=== PATIENT | male | born 1980 | race Caucasian/White ===

== ENCOUNTER 2024-10-16 13:14 | Day surgery (SDC) | payer BC, SELFPAY ==
[2024-10-16] VITALS (8 sets, daily range): BP systolic 129–138; BP diastolic 74–84; PULSE 73–95; RESP 16–18; TEMP 36.6–36.9; O2SAT 97–99; BMI 48.2
--- NOTE | 2024-10-16 | IMM_PTH ---
PATIENT: MCKENNA BAIRD LOC: EN U#:[id number] AGE/SX: 43/M ROOM: RE10/16/[address]: Dr. Freeman Pennington MD : 1980 BED: DIS: 10/16/2024 SPEC #: [id number] RECD: 10/18/24 10:57 STATUS: SRIDHAR REQ #: [id number] FLORES: 10/16/24 00:[address]: Freeman Pennington DEPT: IMMUNOHISTOCHEMISTRY RECD BY: Umesh Sidhu ENTERED: 10/18/24 10:58 SP TYPE: IMMUNO OTHR DR: Roslyn Randall MD Tissues: Descending colon Procedures: SMA (add) CD31 (add) CD34 (add) CK8 (add) DESMIN (add) KI-67 (add) Vimentin (add) FACTOR VIII (add) Pankeratin (initial) PHYSICIAN & INSTITUTION [place] [address] SPECIMEN INFORMATION: Tissue Source: Descending colon polyp Clinical Info: Encounter for screening for malignant neoplasm of colon Specimen Number: [id number] CPT code: 48573,57621j5 METHODOLOGY: Deparaffinized sections of prefer/formalin-fixed tissue or PAP/DQ stained slides are incubated with monoclonal/polyclonal antibodies/oligonucleotide probes. Localization is made via biotin free immunoperoxidase method. Appropriate controls are performed and reacted as expected. Results on target cell population are indicated in the following table: RESULTS: ANTIBODY / CLONE RESULT AE1-3 (AE1/AE3/PCK26) negative CK8 (19hfwrF71) negative Vimentin (V9) positive CD31 (ADDISON/70A) negative Factor VIII (R Ag) negative CD34 (QBEnd-10) negative Actin (1A4) positive Desmin (CE-R-11) positive Ki-67 (30-9) positive, low <1% These tests were developed and their performance characteristics determined by [facility]. They may not have been cleared or approved by the U.S. Food and Drug Administration. The FDA has determined that such clearance or approval is not necessary. The above immunohistochemical/dualISH markers are ordered and reviewed by the Pathologist. INTERPRETATION: Descending colon polyp, polypectomy: Submucosal leiomyoma. 10/21/2024
--- NOTE | 2024-10-16 13:36 | PRE.ANES_ITS ---
ASA Classification* ASA Classification ASA Classification: 2 Assessment & Plan Anesthesia* Anesthesia Assessment Anesthesia Assessment: Discussed sedation and/or anesthesia options, risks, benefits, and alternatives with patient/parents/legal guardian/POA. Questions invited. The patient/parents/legal guardian/POA seems to understand and agrees to proceed with anesthesia plan. Reviewed the physical assessment, medical history, allergy history and patient home medications list prior to surgery/procedure/anesthetic and documented any changes. Performed airway and anesthesia risk assessments. Anesthesia Type Anesthesia Type: MAC Anesthesia Focused Assessment* Airway Assessment Mouth opens: >3 cm Mallampati Score: II Focused Labs Anesthesia Preop lab: CBC CHEMISTRY COAG Pre-Assessment Diagnosis/Proposed Procedure Planned Operative Procedure(s): CSCOPE Anesthesia History Anesthesia History - 911 operator: Anesthesia History - 911 operator Hx Hospitalization No 10/14/24 13:22 Any Problems With Anesthesia No 10/14/24 13:22 Cholinesterase deficiency No 10/14/24 13:22 You/Your Family Experience No 10/14/24 13:22 fever (hyperthermia) with Relationship Recent Exposure to Contagious Disease Does patient have nerve No 10/14/24 13:22 stimulator Patient instructed to have device shut off --Does patient have Pacemaker or ICD? When Was Last Pacemaker Check QUESTION #4 FULL TEXT: You/Your Family Experience fever (hyperthermia) with Anesthesia Last Oral Intake Last Oral intake: Last Oral Intake NPO since Meds taken in AM with sips of water? Meds patient instructed to take am of surgery PONV PONV - 911 operator: PONV - 911 operator Female No 10/14/24 13:22 HX of Motion Sickness No 10/14/24 13:22 HX of N/V After Surgery No 10/14/24 13:22 Non-Smoker Yes 10/14/24 13:22 Duration of Surgery greater No 10/14/24 13:22 than 60 minutes Number of Risk Factors 1 10/14/24 13:22 PONV Score Low Risk 10/14/24 13:22 Height & Weight Height & Weight: Anesthesia: Height & Weight Height 5 ft 11 in 09/23/24 16:09 Respiratory Assessment Respiratory Assessment - 911 operator: Respiratory Tract Infection Hx - 911 operator Hx Respiratory Tract Infection No 10/14/24 13:22 STOP Sleep Apnea STOP Sleep Apnea - 911 operator: STOP Sleep Apnea - 911 operator Hx Hypertension Yes: CONTROLLED WITH 10/14/24 13:22 Hx Sleep Apnea Yes 10/14/24 13:22 CPAP Yes 10/14/24 13:22 BIPAP No 10/14/24 13:22 Do you snore loudly (louder than talking or can be heard Do you often feel tired/ fatigued/ sleepy during daytime? Has anyone observed you stop breathing during sleep? STOP Results Positive 10/14/24 13:22 QUESTION #5 FULL TEXT : Do you snore loudly (louder than talking or can be heard through closed doors)? 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 Specify any problems Hx of Preganancy in last 3 N/A 10/14/24 13:22 Months Nurse Filling Out Transfusion NBUCHER 10/14/24 13:22 & Questions: Date: 10/14/24 10/14/24 13:22 Time: 13:24 10/14/24 13:22 Patient unable to answer at this time (ie. confused, unrespo /Reproduction History /Reproductive History - 911 operator: /Reproductive Hx- 911 operator Hx Now No 10/14/24 13:22 Gestational Age (in weeks): EDC: Hx Hx Para Hx Section SAB No 10/14/24 13:22 [facility] History Wears glasses Non-smoker CPAP (continuous positive airway pressure) dependence Sleep apnea HARIS on CPAP HTN (hypertension) Home Medications ?Medication ?Instructions ?Recorded ?Last Taken ?Type amlodipine 5 mg tablet 5 mg PO QDAY 09/23/24 Unknown History cholecalciferol (vitamin D3) 25 25 mcg PO QDAY 09/23/24 Unknown History mcg (1,000 unit) capsule Allergy/AdvReac Type Severity Reaction Status Date / Time No Known Allergies Allergy Verified 10/14/24 13:22 Family History Aunt Colon cancer, Onset Age: 50 Paternal Father Cancer Mother Hypertension Surgical History Hx of eye surgery (~1984) Social History Smoking Status: Never smoker Review of Systems (Anesthesia) ROS Narrative System reviewed and no additional complaints, except as documented.
--- NOTE | 2024-10-16 14:22 | H&P.OPEN ---
HPI - General HPI Narrative MCKENNA BAIRD, is a 43 M who presents for screening colonoscopy. He has never had a colonoscopy in the past. He denies abdominal pain or blood in the stool. He has family history of colon cancer in an aunt [facility] Medical History Wears glasses Non-smoker CPAP (continuous positive airway pressure) dependence Sleep apnea HARIS on CPAP HTN (hypertension) Home Medications ?Medication ?Instructions ?Recorded ?Last Taken ?Type amlodipine 5 mg tablet 5 mg PO QDAY 09/23/24 10/16/24 09:00 History cholecalciferol (vitamin D3) 25 25 mcg PO QDAY 09/23/24 Unknown History mcg (1,000 unit) capsule Allergy/AdvReac Type Severity Reaction Status Date / Time No Known Allergies Allergy Verified 10/16/24 13:48 Family History Aunt Colon cancer, Onset Age: 50 Paternal Father Cancer Mother Hypertension Surgical History Hx of eye surgery (~1984) Social History Smoking Status: Never smoker Past Medical/Surgical History Planned Operation Planned Operative Procedure(s): CSCOPE Previous Hospitalizations/Surgeries HX Hospitalizations: No Any Problems With Anesthesia: No You/Your Family Experience Fever (Hyperthermia) With Anes: No Cholinesterase deficiency: No Cardiovascular Hx Hypertension: Yes (CONTROLLED WITH) Respiratory Hx Sleep Apnea: Yes CPAP: Yes BIPAP: No Hx Respiratory Tract Infection/Cold (presently): No Result (for STOP score): Positive Smoking Status: Never smoker Neurological Does patient have nerve stimulator: No Reproduction : No Miscellaneous Recent Exposure to Contagious Disease: No Allergies No Known Allergies Allergy (Verified 10/16/24 13:48) Discharge Is Pt Admitted From a [facility], or a Intermediate: No After D/C, Where Do you Plan to Go: Return Home Vital Signs Vital Signs Vital Signs: 10/16/24 13:49 10/16/24 13:49 Temperature 98.4 F Temperature Source Temporal Pulse Rate 95 Respiratory Rate 18 Respiratory Pattern Normal Blood Pressure 138/82 H Blood Pressure Mean 100 Blood Pressure Source Monitor Blood Pressure Position Sitting Blood Pressure Location Right Arm Pulse Ox 99 Oxygen Delivery Method Room Air Weight Weight: 346 lb 2.012 oz Body Mass Index (BMI) 48.2 Physical Exam Const alert and oriented x3 HEENT normocephalic Eyes PERRL Resp normal respiratory effort and normal air movement Cardio regular rate and regular rhythm GI soft to palpation, non-tender and non-distended Extremity normal to inspection Assessment & Plan Assessment/Plan (1) Encounter for screening for malignant neoplasm of colon: PLAN: I explained endoscopy in detail to the patient. I explained the risks including but not limited to stroke or heart attack with anesthesia, perforation of the GI tract, bleeding, infection. I explained that any of these could necessitate further emergency surgery. The patient understands and all questions were answered sufficiently. The patient wishes to proceed with procedure. Freeman Pennington MD Pager: [facility] [address] [place] [address], [address] [place] [address] Office: Surgery Risks - Colonoscopy Risks Include but are not Limited To: Risks include but are not limited to: Bleeding, perforation requiring further surgery, inability to complete colonoscopy requiring barium enema.
--- NOTE | 2024-10-16 14:30 | COLBX_PTH ---
PATIENT: MCKENNA BAIRD LOC: EN U#:[id number] AGE/SX: 43/M ROOM: RE10/16/[address]: Dr. Freeman Pennington MD : 1980 BED: DIS: 10/16/2024 SPEC #: [id number] RECD: 10/16/24 17:54 STATUS: SRIDHAR VILLEDA #: [id number] FLORES: 10/16/24 14:[address]: Freeman Pennington DEPT: SURGICAL PATHOLOGY RECD BY: Jolly Ross ENTERED: 10/17/24 08:10 SP TYPE: COLON BX OTHR DR: Roslyn Randall MD Tissues: Descending colon Procedures: Surgery Specimen Level IV HEADER OPERATION: Colonoscopy, polypectomy PRE-OP DIAGNOSIS: Encounter for screening for malignant neoplasm of colon TISSUE SUBMITTED: Descending colon polyp MICROSCOPIC DIAGNOSIS Descending colon polyp, polypectomy: Submucosal leiomyoma. See roderick. 10/18/2024 COMMENT Immunohistochemistry ([id number]) supports the above diagnosis. MICROSCOPIC DESCRIPTION Slides are reviewed. GROSS DESCRIPTION Received in fixative is one container labeled with the patient's name and designated Descending colon polyp. The specimen consists of a pink-red polyp measuring 0.7 x 0.7 x 0.5 cm. The presumed base is inked. The specimen is bisected and submitted entirely in one cassette. 10/17/2024 TC:1 CPT:85231
--- NOTE | 2024-10-16 14:55 | OP.COLON_ITS ---
Patient Name: Lv Enamorado Procedure Date: 10/16/2024 2:26 PM Date of : 1980 Age: 43 Procedure: Colonoscopy Indications: Screening for colorectal malignant neoplasm Providers: Freeman Pennington MD Referring MD: Roslyn Randall Md Medicines: Propofol per Anesthesia Patient Profile: This is a 43 year old male. Refer to note in patient chart for documentation of history and physical. Last Colonoscopy: none. The patient's first colonoscopy is today. Complications: No immediate complications. Estimated blood loss: Minimal. Procedure: Pre-Anesthesia Assessment: - Prior to the procedure, a History and Physical was performed, and patient medications and allergies were reviewed. The patient's tolerance of previous anesthesia was also reviewed. The risks and benefits of the procedure and the sedation options and risks were discussed with the patient. All questions were answered, and informed consent was obtained. Prior Anticoagulants: The patient has taken no anticoagulant or antiplatelet agents. After reviewing the risks and benefits, the patient was deemed in satisfactory condition to undergo the procedure. After I obtained informed consent, the scope was passed under direct vision. Throughout the procedure, the patient's blood pressure, pulse, and oxygen saturations were monitored continuously. The Colonoscope was introduced through the anus and advanced to the cecum, identified by appendiceal orifice and ileocecal valve. The colonoscopy was performed without difficulty. The patient tolerated the procedure well. The quality of the bowel preparation was good. The ileocecal valve, appendiceal orifice, and rectum were photographed. Scope In: 2:34:51 PM Scope Withdrawal Time 0 hours 8 minutes 35 seconds Scope Out: 2:52:29 PM Total Procedure Duration Time 0 hours 17 minutes 38 seconds Findings: A polyp was found in the descending colon. The polyp was removed with a hot snare. Resection and retrieval were complete. The exam was otherwise without abnormality on direct and retroflexion views. Impression: - One polyp in the descending colon, removed with a hot snare. Resected and retrieved. - The examination was otherwise normal on direct and retroflexion views. Recommendation: - Discharge patient to home. - Resume previous diet. - Continue present medications. - Await pathology results. - Repeat colonoscopy in 5 years for surveillance. Procedure Code(s): --- Professional --- 84867, Colonoscopy, flexible; with removal of tumor(s), polyp(s), or other lesion(s) by snare technique Diagnosis Code(s): --- Professional --- Z12.11, Encounter for screening for malignant neoplasm of colon D12.4, Benign neoplasm of descending colon CPT copyright 2021 [employer]. All rights reserved. The codes documented in this report are preliminary and upon pc installation engineer review may be revised to meet current compliance requirements. Freeman Pennington MD 10/16/2024 2:55:12 PM This report has been signed electronically. Number of Addenda: 0 Note Initiated On: 10/16/2024 2:26 PM
--- NOTE | 2024-10-16 14:55 | OP.CCLET_ITS ---
10/16/2024 Roslyn Randall Md Re : Colonoscopy procedure for Lv Enamorado Dear Prakash This procedure was performed on Wednesday, October 16, 2024. My impressions and recommendations are as follows: Impressions : - One polyp in the descending colon, removed with a hot snare. Resected and retrieved. - The examination was otherwise normal on direct and retroflexion views. Recommendations : - Discharge patient to home. - Resume previous diet. - Continue present medications. - Await pathology results. - Repeat colonoscopy in 5 years for surveillance. My findings are described in the full procedure note, which is enclosed. If I can be of further assistance, please feel free to contact me at Doctor phone number(s): , Work: . Sincerely, Freeman Pennington MD 10/16/2024 2:55:12 PM This report has been signed electronically.
--- NOTE | 2024-10-16 15:06 | PCM.POST.ANE ---
Anesthesia: Postop Eval I Current Vital Signs Temperature: 98.1 F Pulse Rate: 73 Blood Pressure: 137/79 Respiratory Rate: 18 Pulse Ox: 97 Assessment Airway patent: Yes Spontaneous unlabored respirations: Yes nausea: No Vomiting: No Anesthesia Complication: No Fluid Hydration Crystalloid volume administer (ml): 30 Total IV fluid infused: 30 Progress Note Anesthesia document: Postop Eval 1 completed: Yes
--- NOTE | 2024-10-16 15:19 | POSTOPAN2_ITS ---
Anesthesia Postop Eval I Sum Postop Eval Completion status Anesthesia document: Postop Eval 1 completed: Yes Anesthesia Postop Eval I Summary Anesthesia Postop Eval I Summary: Anesthesia Postop Eval I: Assessment Summary Airway patent Yes 10/16/24 15:07 PROMOTIONAL MODEL.[email or web address] Spontaneous unlabored Yes 10/16/24 15:07 PROMOTIONAL MODEL.TNES respirations Mental status nausea No 10/16/24 15:07 PROMOTIONAL MODEL.TNES Vomiting No 10/16/24 15:07 PROMOTIONAL MODEL.TNES Anesthesia Postop Eval I: Fluid Summary Crystalloid volume administer 30 10/16/24 15:07 PROMOTIONAL MODEL.TNES (ml) Colloids volume administered ( ml) Blood Product volume administered (ml) Total IV fluid infused 30 10/16/24 15:07 PROMOTIONAL MODEL.TNES Anesthesia Postop Eval I: Summary Notes Anesthesia Complication No 10/16/24 15:07 PROMOTIONAL MODEL.TNES Anesthesia Complication Comment: Post-operative progress note Anesthesia: Postop Eval II Evaluation Mental status: Awake Pain Level: 0 nausea: No Vomiting: No
--- NOTE | 2024-10-16 15:19 | PCM.POSTANE2 ---
Anesthesia Postop Eval I Sum Postop Eval Completion status Anesthesia document: Postop Eval 1 completed: Yes Anesthesia Postop Eval I Summary Anesthesia Postop Eval I Summary: Anesthesia Postop Eval I: Assessment Summary Airway patent Yes 10/16/24 15:07 ORTHOTIST OR PROSTHETIST.TNES Spontaneous unlabored Yes 10/16/24 15:07 ORTHOTIST OR PROSTHETIST.TNES respirations Mental status nausea No 10/16/24 15:07 ORTHOTIST OR PROSTHETIST.TNES Vomiting No 10/16/24 15:07 ORTHOTIST OR PROSTHETIST.TNES Anesthesia Postop Eval I: Fluid Summary Crystalloid volume administer 30 10/16/24 15:07 ORTHOTIST OR PROSTHETIST.TNES (ml) Colloids volume administered ( ml) Blood Product volume administered (ml) Total IV fluid infused 30 10/16/24 15:07 ORTHOTIST OR PROSTHETIST.TNES Anesthesia Postop Eval I: Summary Notes Anesthesia Complication No 10/16/24 15:07 ORTHOTIST OR PROSTHETIST.TNES Anesthesia Complication Comment: Post-operative progress note Anesthesia: Postop Eval II Evaluation Mental status: Awake Pain Level: 0 nausea: No Vomiting: No
== END 2024-10-16 15:49 | disposition home or self-care (01) ==
LOC: EN 13:15 → AC 13:17
PROVIDERS: PCP Family Medicine; Referring Provider Family Medicine; Visit Provider Surgery
PROC: 0DJD8ZZ Inspection of Lower Intestinal Tract, Via Natural or Artificial Opening Endoscopic (ICD-10-PCS; CPT 45378; principal; 2024-10-16 14:25)
DX: Z12.11 Encounter for screening for malignant neoplasm of colon (principal); D12.4 Benign neoplasm of descending colon; I10 Essential (primary) hypertension; G47.33 Obstructive sleep apnea (adult) (pediatric); Z80.0 Family history of malignant neoplasm of digestive organs; Z79.899 Other long term (current) drug therapy
CPT/HCPCS: 45385; 88305; 88341; 88342; A4216

== ENCOUNTER 2025-03-21 09:11 | Outpatient (CLI) | payer BC, SELFPAY | END 2025-03-21 23:59 | disposition home or self-care (01) | LOC: MFPLAB 09:11 | PROVIDERS: PCP Family Medicine; Referring Provider Family Medicine; Visit Provider Family Medicine | DX: N62 Hypertrophy of breast (principal) | CPT/HCPCS: 36415; 84403 ==

== ENCOUNTER → 2025-08-08 | Outpatient (CLI) | payer BC, SELFPAY ==
[2025-08-14 16:09] LABS: Testosterone, % Free 2.87 % (1.50-4.20); Testosterone, Free 9.04 ng/dL (5.00-21.00)
== END | disposition home or self-care (01) ==
LOC: MFPLAB 08:47
PROVIDERS: PCP Family Medicine; Visit Provider Family Medicine
DX: N62 Hypertrophy of breast (principal)
CPT/HCPCS: 36415; 84402; 84403